=== PATIENT | female | born 2000 | race Caucasian/White ===

== ENCOUNTER 2023-06-18 19:56 | Emergency (ER) | payer OTHER ==
[2023-06-18] MEDS ORDERED: Acetaminophen/HYDROcodone 325-5 MG Tab PO ONE (19:57)
[2023-06-18] MEDS ORDERED: Ketorolac 30 MG/ML SDV IM ONE (20:24)
[2023-06-18] MEDS ORDERED: Cyclobenzaprine 10 MG Tab PO ONE (20:24)
== END 2023-06-18 21:49 | disposition home or self-care (01) ==
LOC: FB.ED 19:56
DX: M43.6 Torticollis (principal); Z79.899 Other long term (current) drug therapy
CPT/HCPCS: 96372; 99283; A9270-GY; J1885